=== PATIENT | female | born 1945 | race Caucasian/White ===

== ENCOUNTER 2017-06-11 17:57 | Inpatient (IN) | payer OTHER ==
[~2017-06-11] VITALS: Ht 162.6 cm; Wt 95.7 kg
--- NOTE | 2017-06-11 18:15 | NUR ---
PT MICHELLE FROM SNF FOR N/V/D X 1 WEEK. NAD NOTED. AFEBRILE. PT AAOX3. ABLE TO AMBULATE. SEEN BY MD FOR EVAL. SAFETY AND COMFORT MEASURES PROVIDED. WILL MONITOR.
[2017-06-11 18:23] LABS: BASOPHILS % (AUTO) 0.3 % (0.0-2.0); EOSINOPHILS # (AUTO) 0.1 /CMM (0.0-0.7); EOSINOPHILS % (AUTO) 0.9 % (0.0-6.0); HEMATOCRIT 50 % (33-45); HEMOGLOBIN 16.9 g/dL (11.5-14.8); LYMPHOCYTES # (AUTO) 1.9 /CMM (0.8-4.8); LYMPHOCYTES % (AUTO) 12.5 % (20.0-44.0); MEAN CORPUSCULAR HEMOGLOBIN 29 PG (26.0-33.0); MEAN CORPUSCULAR HGB CONC 34 g/dl (31.0-36.0); MEAN CORPUSCULAR VOLUME 86 fL (82-100); MONOCYTES # (AUTO) 0.9 /CMM (0.1-1.30); MONOCYTES % (AUTO) 6.2 % (2.0-12.0); NEUTROPHILS % (AUTO) 80.1 % (43.0-81.0); PLATELET COUNT (AUTO) 276 /CMM (150-450); RDW COEFFICIENT OF VARIATION 13.8 (11.5-15.0); RED BLOOD CELL COUNT(AUTO) 5.84 MIL/uL (4.0-5.2); WHITE BLOOD COUNT (AUTO) 14.9 K/uL (4.3-11.0)
--- NOTE | 2017-06-11 18:30 | NUR ---
PT UNABLE TO GIVE URINE AT THIS TIME.
[2017-06-11 18:33] LABS: CALCIUM, SERUM 9.2 mg/dL (8.5-10.1); CARBON DIOXIDE 25 mmol/L (21-32); CHLORIDE 101 mmol/L (98-107); CREATININE 1.8 mg/dL (0.6-1.3); GLUCOSE 198 mg/dL (74-106); SODIUM SERUM 136 mmol/L (136-145); UREA NITROGEN, BLOOD 23 mg/dL (7-18)
[2017-06-11 18:38] LABS: ALANINE AMINOTRANSFERASE 39 U/L (12-78); ALBUMIN 3.8 g/dL (3.4-5.0); ALKALINE PHOSPHATASE 142 U/L (46-116); ASPARTATE AMINOTRANSFERASE 33 U/L (15-37); BILIRUBIN,DIRECT 0.3 mg/dL (0.0-0.2); BILIRUBIN,TOTAL 2.2 mg/dL (0.2-1.0); LIPASE 169 U/L (73-393); TOTAL PROTEIN, SERUM 7.4 g/dL (6.4-8.2)
--- NOTE | 2017-06-11 19:13 | NUR ---
REPORT GIVEN TO ELSIE REYNOLDS FOR [facility].
[2017-06-11] MEDS ORDERED: IV NS 0.9% 500 ML BAG IV ONE (20:00)
[2017-06-11] MEDS ORDERED: ONDANSETRON HCL/PF - ER 4 MG/2 ML VIAL IV ONE (20:00)
[2017-06-11] MEDS ORDERED: ONDANSETRON HCL/PF 4 MG/2 ML VIAL ONE (20:02)
[2017-06-11 20:33] LABS: APPEARANCE,URINE Clear (CLEAR); BILIRUBIN,URINE SMALL (NEGATIVE); BLOOD, URINE Negative Ery/uL (NEGATIVE); COLOR,URINE Yellow (YELLOW); KETONES,URINE 15 (NEGATIVE); LEUKOCYTE ESTERASE ,URINE Negative (NEGATIVE); NITRITE, URINE Positive (NEGATIVE); PROTEIN,URINE 30 mg/dl (NEGATIVE); UGLUCOSE Negative (NEGATIVE); UROBILINOGEN,URINE 0.2 EU/dL (0.2)
--- NOTE | 2017-06-11 20:35 | NUR ---
IN AND OUT COLVIN CATH DONE WITHOUT INCIDENT. URINE SAMPLE OBTAINED AND SENT TO LAB
[2017-06-11] MEDS ORDERED: CIPROFLOXACIN IV RTU 400 MG in PREMIX 1 EA IV STA (20:41)
[2017-06-11] MEDS ORDERED: CIPROFLOXACIN IV RTU 200 ML IV ONE (20:50)
[2017-06-11 20:59] LABS: BACTERIA,URINE Many /HPF (None Seen); MUCUS,URINE Few /LPF (None Seen); RBC,URINE 0-2 /HPF (0-2); SQUAMOUS EPITHELIAL CELL,UR Few /HPF (None Seen); URINE AMORPHOUS URATE Few /HPF (None Seen); WBC,URINE 4-6/HPF /HPF (0-3)
--- NOTE | 2017-06-11 21:00 | NUR ---
MEDICATED PT ORDERED
[2017-06-11] MEDS ORDERED: LOSA25TA13 PO (21:10)
[2017-06-11] MEDS ORDERED: METF850T2 PO (21:10)
[2017-06-11] MEDS ORDERED: ATOR20TA PO (21:10)
[2017-06-11] MEDS ORDERED: ASPI81TA2 PO (21:10)
[2017-06-11] MEDS ORDERED: TEMA15CA PO (21:10)
[2017-06-11] MEDS ORDERED: CYCL5TAB PO (21:10)
[2017-06-11] MEDS ORDERED: METO-302 PO (21:10)
[2017-06-11] MEDS ORDERED: FLUO40CA49 PO (21:10)
[2017-06-11] MEDS ORDERED: INSU300I SQ (21:10)
--- NOTE | 2017-06-11 21:18 | NUR ---
PT TRANSPORTED TO [facility] BED BY EMT
--- NOTE | 2017-06-11 21:25 | NUR ---
RN NOTE PT ARRIVED ON UNIT ADMITTED UNDER DR SPENCER/JOSELITO. AAOX3, NO C/O ANY PAIN OR DISCOMFORT. NO N/V REPORTED AT THIS TIME. BREATHING NONLABORED AND EVEN. MS STATUS, AMBULATORY WITH WALKER. IV INTACT AND PATENT. SKIN INTACT. ORIENTATED TO UNIT AND CALL LIGHT SYSTEM. AWAITING MD ORDERS. WILL CONT TO MONITOR.
[2017-06-11 21:30] VITALS: BP 135/68
[2017-06-11] MEDS ORDERED: CIPROFLOXACIN IV RTU 200 MG in PREMIX 1 EA IV ONE (21:30)
[2017-06-11] MEDS ORDERED: DEXTROSE 50%-WATER 50 ML DISP.SYRIN IV PRN (22:30)
[2017-06-11] MEDS ORDERED: INSULIN DETEMIR 100 UNIT/ML CARTRIDGE SQ SCH (22:30)
[2017-06-11] MEDS ORDERED: TEMAZEPAM 15 MG CAPSULE PO PRN (22:30)
[2017-06-11] MEDS ORDERED: LEVOFLOXACIN (500MG) 500 MG TABLET PO SCH (22:30)
[2017-06-11] MEDS ORDERED: ATORVASTATIN 40 MG TABLET ONE (22:44)
[2017-06-11] MEDS ORDERED: TEMAZEPAM 15 MG CAPSULE ONE (22:44)
[2017-06-11] MEDS ORDERED: LEVOFLOXACIN (500MG) 500 MG TABLET ONE (22:45)
[2017-06-11] MEDS: IV NS 0.9% 1,000 ML IV PRN (23:01)
[2017-06-11] MEDS: BLOOD SUGAR DIAGNOSTIC 1 EACH STRIP VI SCH (23:01)
[2017-06-11] MEDS: ATORVASTATIN 10 MG TABLET PO SCH (23:01)
[2017-06-12] MEDS ORDERED: ONDANSETRON HCL/PF 4 MG/2 ML VIAL ONE (00:47)
[2017-06-12] MEDS: ONDANSETRON HCL/PF 4 MG/2 ML VIAL IV PRN ×3 (00:49→16:04)
[2017-06-12 06:35] LABS: BASOPHILS % (AUTO) 0.2 % (0.0-2.0); EOSINOPHILS # (AUTO) 0.1 /CMM (0.0-0.7); EOSINOPHILS % (AUTO) 1.1 % (0.0-6.0); HEMATOCRIT 43 % (33-45); HEMOGLOBIN 14.7 g/dL (11.5-14.8); LYMPHOCYTES # (AUTO) 1.8 /CMM (0.8-4.8); LYMPHOCYTES % (AUTO) 16.3 % (20.0-44.0); MEAN CORPUSCULAR HEMOGLOBIN 30 PG (26.0-33.0); MEAN CORPUSCULAR HGB CONC 34 g/dl (31.0-36.0); MEAN CORPUSCULAR VOLUME 87 fL (82-100); MONOCYTES % (AUTO) 9.1 % (2.0-12.0); NEUTROPHILS # (AUTO) 8.1 /CMM (1.8-8.9); NEUTROPHILS % (AUTO) 73.3 % (43.0-81.0); PLATELET COUNT (AUTO) 223 /CMM (150-450); RDW COEFFICIENT OF VARIATION 14.4 (11.5-15.0); RED BLOOD CELL COUNT(AUTO) 4.98 MIL/uL (4.0-5.2); WHITE BLOOD COUNT (AUTO) 11.1 K/uL (4.3-11.0)
[2017-06-12] MEDS: BLOOD SUGAR DIAGNOSTIC 1 EACH STRIP VI SCH ×4 (06:44→20:44)
[2017-06-12] MEDS: INSULIN REGULAR, HUMAN 100 UNIT/ML 3 ML VIAL SQ PRN ×3 (06:45→20:43)
[2017-06-12 06:46] LABS: CHOLESTEROL 99 mg/dL (<200); HDL CHOLESTEROL 49 mg/dL (40-60); LDL 37 mg/dL (0-99); TRIGLYCERIDES 121 mg/dL (30-150)
[2017-06-12 07:00] LABS: ALANINE AMINOTRANSFERASE 39 U/L (12-78); ALKALINE PHOSPHATASE 114 U/L (46-116); ASPARTATE AMINOTRANSFERASE 25 U/L (15-37); BILIRUBIN,TOTAL 1.6 mg/dL (0.2-1.0); CARBON DIOXIDE 27 mmol/L (21-32); CHLORIDE 104 mmol/L (98-107); CREATININE 1.6 mg/dL (0.6-1.3); GLUCOSE 130 mg/dL (74-106); POTASSIUM 3.6 mmol/L (3.5-5.1); SODIUM SERUM 138 mmol/L (136-145); TOTAL PROTEIN, SERUM 6.3 g/dL (6.4-8.2); UREA NITROGEN, BLOOD 22 mg/dL (7-18)
--- NOTE | 2017-06-12 07:00 | NUR ---
RN NOTE NO SIGNIFICANT CHANGES OVERNIGHT. PT APPEARS COMFORTABLE, NO S/S OF ANY DISTRESS. NO C/O N/V. IV INTACT AND PATENT, TOLERATING FLUIDS WELL. CALL LIGHT IN REACH. ALL NEEDS ATTENDED TO. WILL F/U WITH DAY SHIFT FOR [facility].
--- NOTE | 2017-06-12 07:40 | NUR ---
RN OPENING NOTES PATIENT IS AWAKE IN BED AT THIS TIME. RESTING COMFORTABLY. HAS NO COMPLAINTS OF NAUSEA AND PAIN. NO ACUTE DISTRESS. NO SOB. RESPIRATIONS APPEAR EVEN AND UNLABORED AT THIS TIME. IV ACCESS PATENT AND INTACT ON THE L FOREARM. BED LOCKED IN THE LOWEST POSITION WITH SIDERAILS UP X2. CALL LIGHT WITHIN REACH. WILL CONTINUE TO MONITOR AND ASSESS PATIENT DURING SHIFT.
[2017-06-12 08:00] VITALS: BP 116/62
--- NOTE | 2017-06-12 08:47 | NUR ---
RN NOTES 0800 BP READING 116/62 HR 67. RECHECKED BP/HR BP 112/59 HR 69. HELD MORNING BP MEDS COZAAR AND ATENOLOL. PATIENT NOTIFIED. VERBALIZED UNDERSTANDING. WILL CONTINUE TO MONITOR AND REASSESS.
[2017-06-12] MEDS: METFORMIN 850 MG TABLET PO SCH (08:55)
[2017-06-12] MEDS: FLUOXETINE HCL 20 MG CAPSULE PO SCH (08:55)
[2017-06-12] MEDS ORDERED: ATENOLOL 25 MG TABLET PO SCH (09:00)
[2017-06-12] MEDS ORDERED: LOSARTAN POTASSIUM 25 MG TABLET PO SCH (09:00)
--- NOTE | 2017-06-12 14:36 | NUR ---
RN NOTES DISCUSSED WITH DR. SPENCER CT ABD RESULTS. ASKED ABOUT POSSIBLE TB TEST. DR. SPENCER GAVE VERBAL ORDERS FOR TB QUANTIFERON GOLD. WILL CARRY OUT ORDERS.
[2017-06-12 15:59] VITALS: BP 133/68
[2017-06-12] MEDS: IV NS 0.9% 1,000 ML IV PRN (16:12)
--- NOTE | 2017-06-12 19:06 | NUR ---
MS/RN End note Patient's condition remians unchanged throughout shift. Orders given by Dr Nance, all noted and carried out. All needs attended, will endorse to operations supervisor 2nd shift.
--- NOTE | 2017-06-12 19:07 | NUR ---
RN NOTE RECEIVED REPORT. PT AAOX4, C/O 06/14 PAIN IN LOWER BACK ASKING FOR PAIN MEDICATION. WILL F/U WITH DR VASQUEZ. BREATHING NON-LABORED AND EVEN. NO N/V REPORTED AT THIS TIME. I VINTACT AND PATENT, TOELRATING FLUIDS WELL. WILL CONT TO MONITOR.
--- NOTE | 2017-06-12 19:30 | NUR ---
RN NOTE PAGED DR VASQUEZ.
[2017-06-12 20:12] VITALS: BP 160/78
[2017-06-12] MEDS: HYDROCODONE/APAP 5/325MG 1 EACH TABLET PO PRN (20:32)
[2017-06-12] MEDS: CEFTRIAXONE 1 G in IV D5W 50 ML IV SCH (20:32)
[2017-06-12] MEDS: METOPROLOL SUCCINATE 25 MG TAB.SR.24H PO SCH (20:33)
[2017-06-12] MEDS: INSULIN DETEMIR 100 UNIT/ML CARTRIDGE SQ SCH (20:42)
[2017-06-12] MEDS: ATORVASTATIN 10 MG TABLET PO SCH (20:44)
[2017-06-12] MEDS ORDERED: LEVOFLOXACIN (250MG) 250 MG TABLET PO SCH (22:00)
[2017-06-13] MEDS: ONDANSETRON HCL/PF 4 MG/2 ML VIAL IV PRN ×3 (03:44→14:39)
[2017-06-13 06:44] LABS: BASOPHILS % (AUTO) 0.3 % (0.0-2.0); EOSINOPHILS # (AUTO) 0.2 /CMM (0.0-0.7); EOSINOPHILS % (AUTO) 2.1 % (0.0-6.0); HEMATOCRIT 42 % (33-45); HEMOGLOBIN 13.8 g/dL (11.5-14.8); LYMPHOCYTES # (AUTO) 1.6 /CMM (0.8-4.8); LYMPHOCYTES % (AUTO) 16.9 % (20.0-44.0); MEAN CORPUSCULAR HEMOGLOBIN 29 PG (26.0-33.0); MEAN CORPUSCULAR HGB CONC 33 g/dl (31.0-36.0); MEAN CORPUSCULAR VOLUME 87 fL (82-100); MONOCYTES # (AUTO) 0.9 /CMM (0.1-1.30); MONOCYTES % (AUTO) 9.4 % (2.0-12.0); NEUTROPHILS # (AUTO) 6.9 /CMM (1.8-8.9); NEUTROPHILS % (AUTO) 71.3 % (43.0-81.0); PLATELET COUNT (AUTO) 210 /CMM (150-450); RDW COEFFICIENT OF VARIATION 14.7 (11.5-15.0); RED BLOOD CELL COUNT(AUTO) 4.81 MIL/uL (4.0-5.2); WHITE BLOOD COUNT (AUTO) 9.7 K/uL (4.3-11.0)
[2017-06-13] MEDS: BLOOD SUGAR DIAGNOSTIC 1 EACH STRIP VI SCH ×4 (06:52→21:23)
[2017-06-13 06:57] LABS: CALCIUM, SERUM 8.1 mg/dL (8.5-10.1); CARBON DIOXIDE 30 mmol/L (21-32); CHLORIDE 107 mmol/L (98-107); CREATININE 1.5 mg/dL (0.6-1.3); GLUCOSE 97 mg/dL (74-106); POTASSIUM 3.9 mmol/L (3.5-5.1); SODIUM SERUM 144 mmol/L (136-145); UREA NITROGEN, BLOOD 17 mg/dL (7-18)
--- NOTE | 2017-06-13 07:02 | NUR ---
RN NOTE NO SIGNFICANT CHANGES OVERNGIHT. PT RESTING COMFORTABLY IN BED, NO S/S OR C/O ANY PAIN OR DISCOMFORT AT THIS TIME. IV INTACT AND PATENT, TOLERATING FLUIDS WELL. CALL LIGHT IN REACH, WILL F/U WITH DAY SHIFT FOR [facility].
--- NOTE | 2017-06-13 07:46 | NUR ---
MS/RN Opening note Patient received from overnight cashier. Denies any pain or discomfort, remains with some nausea, zofran already administered earlier this morning by overnight cashier. Call light within reach, will continue to monitor and ensure safety.
[2017-06-13 08:00] VITALS: BP 146/76
[2017-06-13] MEDS: FLUOXETINE HCL 20 MG CAPSULE PO SCH (08:18)
[2017-06-13] MEDS: ASPIRIN EC 81 MG TABLET.DR PO SCH (08:18)
[2017-06-13] MEDS: METOPROLOL SUCCINATE 25 MG TAB.SR.24H PO SCH (08:19)
[2017-06-13] MEDS: METFORMIN 850 MG TABLET PO SCH (08:19)
[2017-06-13] MEDS: LOSARTAN POTASSIUM 25 MG TABLET PO SCH ×2 (08:20→16:31)
[2017-06-13] MEDS: INSULIN DETEMIR 100 UNIT/ML CARTRIDGE SQ SCH ×2 (08:25→21:24)
--- NOTE | 2017-06-13 09:00 | NUR ---
MS/RN Medications Morning medications administered as ordered.
--- NOTE | 2017-06-13 10:23 | NUR ---
MS/RN TB Gold TB Gold blood test ordered by Dr Nance for patient yesterday. Infection control aware and will follow up as to if patient needs to be isolated until test is resulted.
[2017-06-13] MEDS: INSULIN REGULAR, HUMAN 100 UNIT/ML 3 ML VIAL SQ PRN (12:31)
--- NOTE | 2017-06-13 13:00 | NUR ---
MS/RN Blood sugar Blood sugar at noon 196, per sliding scale three units regular insulin to be administered.
[2017-06-13 16:00] VITALS: BP 113/75
[2017-06-13] MEDS: HYDROCODONE/APAP 5/325MG 1 EACH TABLET PO PRN (16:30)
--- NOTE | 2017-06-13 16:30 | NUR ---
MS/RN Pain Complaining of back pain 06/14. Hubbard one tablet administered, will monitor effectiveness.
--- NOTE | 2017-06-13 17:00 | NUR ---
MS/RN Blood sugar Blood sugar at 5p 99, no coverage needed. Patient reminded to eat at dinner to maintain blood sugar.
--- NOTE | 2017-06-13 18:16 | NUR ---
MS/RN End note Pain now well controlled, all needs attended. Will endorse to third shift lieutenant.
--- NOTE | 2017-06-13 19:23 | NUR ---
RN NOTE; RECEIVED PT IN BED AWAKE AND ALERT. BREATHING EVENLY. NO SOB. NAD. SKIN WARM AND DRY. DENIED ANY PAIN OR DISCOMFORT OR N/V AT THIS TIME. NEEDS ATTENDED . PT WERE CONNECTED TO THE IVF HYDRATION . CALL LIGHT GIVEN TI THE PT AND REMINDER WAS GIVEN TO USE THE CALL LIGHT FOR ASSISTANCE AND TO PREVENT FALL. WILL CONT TO MONITOR,
[2017-06-13 20:00] VITALS: BP 132/75
[2017-06-13] MEDS: CEFTRIAXONE 1 G in IV D5W 50 ML IV SCH (20:31)
[2017-06-13 20:56] VITALS: BP 132/75
[2017-06-13] MEDS: ATORVASTATIN 10 MG TABLET PO SCH (21:23)
[2017-06-13] MEDS: *INSULIN REGULAR(HUMULIN R)HUM 100 UNIT/ML VIAL SQ PRN (21:25)
[2017-06-13] MEDS: IV NS 0.9% 1,000 ML IV PRN (21:31)
[2017-06-14] MEDS: ONDANSETRON HCL/PF 4 MG/2 ML VIAL IV PRN ×2 (05:51→14:11)
--- NOTE | 2017-06-14 05:53 | NUR ---
zofran 2mg ivp given for c/o nausea. will cont to monitor
[2017-06-14] MEDS: BLOOD SUGAR DIAGNOSTIC 1 EACH STRIP VI SCH ×4 (06:35→21:31)
[2017-06-14] MEDS: INSULIN REGULAR, HUMAN 100 UNIT/ML 3 ML VIAL SQ PRN ×2 (06:38→12:27)
--- NOTE | 2017-06-14 06:55 | NUR ---
RN NOTE; PT IN BED AWAKE AND ALERT. NO BREATHING EVENLY. NO ACUTE EVENT DURING THE NIGHT. NO DARRHEA EPISODE. NO VOMITING. NO C/O DYSURIA. AFEBRILE. NAUSEA RESOLVED BY ZOFRAN. NEEDS ATTENDED,. CALL LIGHT WITHIN REACH. WILL CONT TO MONITOR AND WILL ENDORSE TO AM SHIFT FOR [facility].
--- NOTE | 2017-06-14 07:25 | NUR ---
RN OPEN NOTES RECEIVED REPORT FROM SECURITY ASSESSOR NURSE. WILL CONTINUE TO ASSESS AND MONITOR PATIENT THROUGH OUT MY SHIFT
[2017-06-14 08:00] VITALS: BP 148/75
[2017-06-14] MEDS: ASPIRIN EC 81 MG TABLET.DR PO SCH (09:28)
[2017-06-14] MEDS: METFORMIN 850 MG TABLET PO SCH (09:28)
[2017-06-14] MEDS: METOPROLOL SUCCINATE 25 MG TAB.SR.24H PO SCH (09:28)
[2017-06-14] MEDS: LOSARTAN POTASSIUM 25 MG TABLET PO SCH ×2 (09:28→17:26)
[2017-06-14] MEDS: FLUOXETINE HCL 20 MG CAPSULE PO SCH (09:29)
[2017-06-14] MEDS: INSULIN DETEMIR 100 UNIT/ML CARTRIDGE SQ SCH ×2 (09:36→21:39)
[2017-06-14] MEDS: IV NS 0.9% 1,000 ML IV PRN (09:37)
--- NOTE | 2017-06-14 11:12 | NUR ---
CHENG CEDEÑO, CALLED AND REQUESTED TO PLACED PATIENT ON AIR-BORN ISOLATION TILL TB INCUBATION TEST WILL COME BACK
[2017-06-14 15:10] LABS: QFT MITOGEN VALUE 9.94 IU/mL (.); QFT TB AG MINUS NIL VALUE 0.08 IU/mL (.); QFT TB AG VALUE 0.12 IU/mL (.); QFT TB GOLD Negative (Negative)
[2017-06-14 16:00] VITALS: BP 128/77
--- NOTE | 2017-06-14 18:00 | NUR ---
TB RESULTS ARE NEGATIVE. NO NEEDS FOR ISOLATION
[2017-06-14 18:51] LABS: OCCULT BLOOD STOOL NEGATIVE (NEGATIVE)
--- NOTE | 2017-06-14 19:24 | NUR ---
RN CLOSING NOTES GAVE REPORT TO RN INTERNSHIP NURSE. PATIENT IN IN BED, AWAKE, ALERT AND ORIENTED TO NAME, PLACE AND TIME. NO SIGNS AND SYMPTOMS OF DISTRESS. DENIED PAIN. BED IN LOW POSITION, LOCKED AND TWO SIDE RAILS ARE UP. ALL NURSING CARE ANTICIPATED. PATIENT REMAINED SAFE, CLEAN AND DRY DURING MY SHIFT. IV SITE IS INTACT WITH NO SIGNS OR SYMPTOMS OF INFLAMMATION OR REDNESS.
--- NOTE | 2017-06-14 19:30 | NUR ---
RN NOTE; RECEIVED PT IN BED AWAKE AND ALERT. BREATHING EVENLY. NO SOB. NO COUGH. NAD. SKIN WARM AND DRY. DENIED ANY PAIN OR DISCOMFORT OR N/V AT THIS TIME. NEEDS ATTENDED . PT WERE CONNECTED TO THE IVF HYDRATION . CALL LIGHT GIVEN TO THE PT AND REMINDER WAS GIVEN TO USE THE CALL LIGHT FOR ASSISTANCE AND TO PREVENT FALL. WILL CONT TO MONITOR,
[2017-06-14 20:00] VITALS: BP 148/67
[2017-06-14] MEDS: CEFTRIAXONE 1 G in IV D5W 50 ML IV SCH (20:40)
[2017-06-14] MEDS: ATORVASTATIN 10 MG TABLET PO SCH (21:32)
[2017-06-14] MEDS: *INSULIN REGULAR(HUMULIN R)HUM 100 UNIT/ML VIAL SQ PRN (21:38)
--- NOTE | 2017-06-15 06:24 | NUR ---
RN NOTE; PT IN BED SLEEPING, AROUSES EASILY. BREATHING EVENLY. NO ACUTE EVENT DURING THE NIGHT. NO DIARRHEA EPISODE. NO NAUSEA/ VOMITING. NO C/O DYSURIA. AFEBRILE. . NEEDS ATTENDED,. CALL LIGHT WITHIN REACH. WILL CONT TO MONITOR AND WILL ENDORSE TO AM SHIFT FOR [facility].
[2017-06-15] MEDS: BLOOD SUGAR DIAGNOSTIC 1 EACH STRIP VI SCH ×2 (06:42→11:34)
--- NOTE | 2017-06-15 06:54 | NUR ---
PT W/ FSBS ACB:57. REMAINED ALERT AND ORIENTEDX4.. RESPONSIVE. NO AMS. NO ALOC. NO EXCESSIVE SWEATING. D50 GIVEN ORDERED ,.WILL RECHECK THE GLUCOSE LEVEL .
--- NOTE | 2017-06-15 07:13 | NUR ---
RECHECKED BLOOD SUGAR:147. PT REMAINED STABLE W/ NO ACUTE DISTRESS. REPORT GIVEN TO TERA KANG.
[2017-06-15 08:00] VITALS: BP 147/70
--- NOTE | 2017-06-15 08:00 | NUR ---
m/s sustainability purchasing agent: initial assessment received pt in bed awake, a/ox3, ambulatory. continue on ivf, infusing well. no c/o pain or any discomfort. instructed to call for assistance. will continue to monitor.
[2017-06-15] MEDS: FLUOXETINE HCL 20 MG CAPSULE PO SCH (08:33)
[2017-06-15 08:34] VITALS: BP 147/70
[2017-06-15] MEDS: METFORMIN 850 MG TABLET PO SCH (08:34)
[2017-06-15] MEDS: METOPROLOL SUCCINATE 25 MG TAB.SR.24H PO SCH (08:34)
[2017-06-15] MEDS: INSULIN DETEMIR 100 UNIT/ML CARTRIDGE SQ SCH (08:34)
[2017-06-15] MEDS: LOSARTAN POTASSIUM 25 MG TABLET PO SCH (08:34)
[2017-06-15] MEDS: ASPIRIN EC 81 MG TABLET.DR PO SCH (08:34)
[2017-06-15] MEDS: ONDANSETRON HCL/PF 4 MG/2 ML VIAL IV PRN (11:55)
--- NOTE | 2017-06-15 11:55 | NUR ---
M/S SENIOR INFRASTRUCTURE ARCHITECT: NOTES MEDICATED WITH ZOFRAN 2MG IVP BY RN DUE C/O NAUSEA. INSTRUCTED TO CALL FOR ASSISTANCE. WILL MONITOR.
--- NOTE | 2017-06-15 12:35 | NUR ---
m/s lending activities supervisor: md visit dr. alberto here and updated pt condition. informed md pt dropped to 57 (blood sugar) this morning and was given d50 by noc nurse, but pt is asymptomatic. seen and examined by dr. alberto at this time. will continue to monitor. call light within reach.
--- NOTE | 2017-06-15 14:00 | NUR ---
m/s vascular manager: notes dr. alberto notified re: d'c planning with order to discharge pt back to assisted living facility. litzy (case management) made aware. per pt hospital needs to arrange transportation. [facility] notified by litzy and made aware re: discharge back today via taxi. pt okay with taxi, pt is ambulatory. cn aware. called nursing ward service supervisor for taxi voucher.
--- NOTE | 2017-06-15 14:25 | NUR ---
m/s safety counselor: notes received [facility] 1 bid x 2d. litzy (case management) here and made aware and will inform [facility] to start medication (antibiotic).
--- NOTE | 2017-06-15 14:40 | NUR ---
m/s inspector final assembly electrical: d'c instruction discharged instructions given to pt and to start on bactrim ds 1 tab po bid x 2 days at the assisted living and to continue home meds, pt educated on medication including side effect and verbalized understanding. h/l removed with tip intact with no bleeding, no redness, and no swelling noted. awaiting for taxi voucher from nursing supervisor steel [employer]. pt aware.
--- NOTE | 2017-06-15 15:00 | NUR ---
m/s health and safety representative: discharged discharged back to assisted living facility via taxi with voucher in stable condition with all d'c papers and valuables.
== END 2017-06-15 15:00 | DRG 872 ==
LOC: ER 17:59 → MED 21:16
PROVIDERS: ADMIT Nurse Practitioner Primary Care; ATTEND Internal Medicine
DX: A41.9 Sepsis, unspecified organism (principal); K55.9 Vascular disorder of intestine, unspecified; E11.22 Type 2 diabetes mellitus with diabetic chronic kidney disease; E11.40 Type 2 diabetes mellitus with diabetic neuropathy, unspecified; N18.3 Chronic kidney disease, stage 3 (moderate); N39.0 Urinary tract infection, site not specified; A08.4 Viral intestinal infection, unspecified; E11.649 Type 2 diabetes mellitus with hypoglycemia without coma; E11.65 Type 2 diabetes mellitus with hyperglycemia; E66.9 Obesity, unspecified; F17.200 Nicotine dependence, unspecified, uncomplicated; I12.9 Hypertensive chronic kidney disease with stage 1 through stage 4 chronic kidney disease, or unspecified chronic kidney disease; I25.10 Atherosclerotic heart disease of native coronary artery without angina pectoris; J45.909 Unspecified asthma, uncomplicated; Z79.4 Long term (current) use of insulin; Z79.82 Long term (current) use of aspirin; Z79.899 Other long term (current) drug therapy; Z82.49 Family history of ischemic heart disease and other diseases of the circulatory system; Z82.5 Family history of asthma and other chronic lower respiratory diseases; Z88.0 Allergy status to penicillin; Z90.49 Acquired absence of other specified parts of digestive tract; Z90.710 Acquired absence of both cervix and uterus; Z88.5 Allergy status to narcotic agent; Z88.8 Allergy status to other drugs, medicaments and biological substances; F41.9 Anxiety disorder, unspecified; F32.9 Major depressive disorder, single episode, unspecified; M19.90 Unspecified osteoarthritis, unspecified site
CPT/HCPCS: 36415; 72128-TC; 80048-TC; 80053-TC; 80061-TC; 80076-TC; 81000-TC; 82272-TC; 82962-TC; 83690-TC; 85025-TC; 87045-TC; 87081-TC; 87086-TC; 87186-TC; 89055; A4216; A4606; J0696; J0744; J1815; J2405; J7030; J7040; J7060; Z7610

== ENCOUNTER 2018-11-28 16:14 | Emergency (ER) | payer MEDICARE, OTHER ==
[~2018-11-28] VITALS: Ht 160 cm; Wt 81.6 kg
[~2018-11-28 16:14] MED LIST: ASPI-1169 PO; ATOR20TA PO; CYCL5TAB PO; FLUO40CA49 PO; INSU300I SQ; LOSA25TA27 PO; METF-441 PO; METO-356 PO; TEMA15CA PO
--- NOTE | 2018-11-28 16:31 | NUR ---
BIB PRIVATE AMB FROM [facility] FOR NAUSEA AND VOMITING, TO ER BED 3, CHANGED TO GOWN, HOOKED TO MONITOR, AWAITING MD LOPEZ.
--- NOTE | 2018-11-28 17:00 | NUR ---
JENNIFER VERONICA AT BEDSIDE
[2018-11-28 17:19] LABS: BASOPHILS # (AUTO) 0.1 /CMM (0.0-0.2); BASOPHILS % (AUTO) 0.7 % (0.0-2.0); EOSINOPHILS % (AUTO) 1.1 % (0.0-6.0); HEMATOCRIT 44 % (33-45); HEMOGLOBIN 15.1 g/dL (11.5-14.8); LYMPHOCYTES # (AUTO) 2.3 /CMM (0.8-4.8); MEAN CORPUSCULAR HGB CONC 34 g/dl (31.0-36.0); MEAN CORPUSCULAR VOLUME 87 fL (82-100); MONOCYTES # (AUTO) 0.8 /CMM (0.1-1.30); MONOCYTES % (AUTO) 6.6 % (2.0-12.0); NEUTROPHILS # (AUTO) 8.6 /CMM (1.8-8.9); NEUTROPHILS % (AUTO) 72.6 % (43.0-81.0); PLATELET COUNT (AUTO) 303 /CMM (150-450); RED BLOOD CELL COUNT(AUTO) 5.09 MIL/uL (4.0-5.2); WHITE BLOOD COUNT (AUTO) 11.9 K/uL (4.3-11.0)
[2018-11-28] MEDS ORDERED: ONDANSETRON HCL/PF 4 MG/2 ML VIAL ONE (17:20)
[2018-11-28] MEDS ORDERED: IV NS 0.9% 1,000 ML BAG IV ONE ×2 (17:30→19:30)
[2018-11-28] MEDS ORDERED: ONDANSETRON HCL/PF 4 MG/2 ML VIAL IVP ONE (17:30)
[2018-11-28 17:36] LABS: CARBON DIOXIDE 30 mmol/L (21-32); CHLORIDE 104 mmol/L (98-107); CREATININE 1.5 mg/dL (0.6-1.3); GLUCOSE 145 mg/dL (74-106); POTASSIUM 3.9 mmol/L (3.5-5.1); SODIUM SERUM 139 mmol/L (136-145); UREA NITROGEN, BLOOD 14 mg/dL (7-18)
[2018-11-28 17:41] LABS: ALANINE AMINOTRANSFERASE 35 U/L (12-78); ALBUMIN 3.3 g/dL (3.4-5.0); ALKALINE PHOSPHATASE 137 U/L (46-116); ASPARTATE AMINOTRANSFERASE 29 U/L (15-37); BILIRUBIN,DIRECT 0.3 mg/dL (0.0-0.2); BILIRUBIN,TOTAL 1.8 mg/dL (0.2-1.0); LIPASE 201 U/L (73-393); TOTAL PROTEIN, SERUM 6.7 g/dL (6.4-8.2)
--- NOTE | 2018-11-28 19:35 | NUR ---
REPORT GIVEN TO NIKI REYNOLDS FOR [facility]AR[facility]
--- NOTE | 2018-11-28 20:25 | NUR ---
Note carmine in ED - 11/28/18 at 2103 by DAVID Patient discharged to home in stable condition. Written and verbal after care instructions given. Patient verbalizes understanding of instruction. IV removed. Catheter intact and site benign. Pressure and 4x4 applied to site. No bleeding noted.
--- NOTE | 2018-11-28 21:19 | NUR ---
[facility] ETA OF Trip#: [id number]
--- NOTE | 2018-11-28 23:15 | NUR ---
Patient discharged in stable condition in ambulance. Written and verbal after care instructions given. Patient verbalizes understanding of instruction.IV removed. Catheter intact and site benign. Pressure and 4x4 applied to site. No bleeding noted.
[2018-11-28 23:16] VITALS: BP 132/78
== END 2018-11-28 23:17 ==
LOC: ER 16:21
DX: R11.2 Nausea with vomiting, unspecified (principal); K76.89 Other specified diseases of liver; D17.71 Benign lipomatous neoplasm of kidney; E80.6 Other disorders of bilirubin metabolism; R79.89 Other specified abnormal findings of blood chemistry; E11.22 Type 2 diabetes mellitus with diabetic chronic kidney disease; I12.9 Hypertensive chronic kidney disease with stage 1 through stage 4 chronic kidney disease, or unspecified chronic kidney disease; N18.9 Chronic kidney disease, unspecified; J45.909 Unspecified asthma, uncomplicated; Z98.890 Other specified postprocedural states; Z90.89 Acquired absence of other organs; Z90.710 Acquired absence of both cervix and uterus; Z88.0 Allergy status to penicillin; Z88.5 Allergy status to narcotic agent; Z79.4 Long term (current) use of insulin; Z79.82 Long term (current) use of aspirin; Z88.9 Allergy status to unspecified drugs, medicaments and biological substances
CPT/HCPCS: 36415; 80048-TC; 80076-TC; 82962-TC; 83690-TC; 84484-TC; 85025-TC; J2405; J7030